=== PATIENT | female | born 1960 | race Caucasian/White ===

== ENCOUNTER 2017-12-21 07:19 | Day surgery (SDC) | payer BC ==
[2017-12-16 19:11] VITALS: BMI 30.9
[2017-12-21] MEDS ORDERED: PROPOFOL 20 ML ONE ×2 (07:26)
[2017-12-21] MEDS ORDERED: LIDOCAINE HCL/PF 2% SDV 5ML VIAL ONE (07:41)
[2017-12-21 09:28] VITALS: TEMP 97.8
[2017-12-21 09:57] VITALS: BP 108/64; PULSE 64
== END 2017-12-21 10:00 | disposition home or self-care (01) ==
LOC: FASU-ENDO 07:19
PROVIDERS: ATTEND Internal Medicine Gastroenterology
PROC: 0DJD8ZZ Inspection of Lower Intestinal Tract, Via Natural or Artificial Opening Endoscopic (ICD-10-PCS; principal; 2017-12-21 08:59)
DX: Z12.11 Encounter for screening for malignant neoplasm of colon (principal); Z80.0 Family history of malignant neoplasm of digestive organs